=== PATIENT | female | born 1980 | race Caucasian/White ===

== ENCOUNTER 2017-01-19 20:59 | Emergency (ER) | payer OTHER ==
[~2017-01-19] VITALS: Ht 170.2 cm; Wt 111.1 kg
[~2017-01-19 20:59] MED LIST: ACID REDUCER75 MG; BACTRIM,SEPT1 TABLET PO; CLINDAMYCIN HC300 MG PO; GABAPENTIN600 MG PO; GLIPIZIDE5 M1 PO; GLUCOPHAGE500 MG PO; HUMULIN 70100 UNIT/2 SC; INDOCIN25 MG PO; KEFLEX500 MG PO; LEXAPRO10 MG PO; LIDODERM 5% P1 PATCH TD; MOTRIN800 MG PO; NAPROXEN500 M1 PO; NEURONTIN100 MG; NORCO 5/3251 TABLET PO; NORCO 7.5/321 TABLET PO; OXYCODONE HCL5 MG PO; OXYMORPHONE HCL30 MG PO; PERCOCET 5/31 TABLET PO; PROMETHAZINE HC25 M1 PO; ROBAXIN500 MG PO; SPRINTEC1 EACH PO; VALIUM5 MG PO; VIIBRYD40 MG PO; [UNRECOGNIZED DRUG - OTHER]
[2017-01-19] MEDS ORDERED: ULTRACET1 TABLET PO (22:41)
[2017-01-19] MEDS ORDERED: INDOCIN50 MG PO (22:41)
[2017-01-19] MEDS ORDERED: VIBRAMYCIN100 MG PO (22:41)
[2017-01-19 22:53] VITALS: BP 157/83
== END 2017-01-19 22:55 | disposition home or self-care (01) ==
LOC: RME 20:59 → EME 20:59 → RME 22:55
DX: L03.221 Cellulitis of neck (principal); F17.200 Nicotine dependence, unspecified, uncomplicated
CPT/HCPCS: 99281; 99284

== ENCOUNTER 2017-05-31 06:45 | Emergency (ER) | payer OTHER ==
[~2017-05-31] VITALS: Ht 170.2 cm; Wt 105.7 kg
[~2017-05-31 06:45] MED LIST changes: +INDOCIN50 MG PO; +ULTRACET1 TABLET PO; +VIBRAMYCIN100 MG PO
[2017-05-31 06:46] VITALS: BP 148/87
[2017-05-31] MEDS ORDERED: ULTRAM50 MG PO (07:29)
[2017-05-31] MEDS ORDERED: MOTRIN800 MG PO (07:29)
[2017-05-31] MEDS ORDERED: BACTRIM,SEPT1 TABLET PO (07:29)
== END 2017-05-31 07:58 | disposition home or self-care (01) ==
LOC: EME 06:45
PROC: 0H9AXZZ Drainage of Inguinal Skin, External Approach (ICD-10-PCS; principal; 2017-05-31)
DX: N76.4 Abscess of vulva (principal); Z86.14 Personal history of Methicillin resistant Staphylococcus aureus infection; E11.9 Type 2 diabetes mellitus without complications; G89.29 Other chronic pain; Z79.891 Long term (current) use of opiate analgesic; F17.200 Nicotine dependence, unspecified, uncomplicated
CPT/HCPCS: 99281; 99284